=== PATIENT | female | born 1970 | race African-American/Black ===

== ENCOUNTER → 2017-04-14 | Outpatient (CLI) | payer OTHER ==
[~2017-04-14] MED LIST: ADRENACLIC0.15 MG/0. SUBQ; CARBAMAZEPINE200 M2 PO; ETODOLAC PO; FLEXERIL PO; INDERAL LA60 M1 PO; MAXALT MLT ODT 55 M1 PO; MOBIC15 MG PO; NORCO 5-325 TA1 EACH PO; NUVARING VAGIN1 EACH; NUVARING VAGIN1 EACH VG; NYQUIL D COLD295 ML PO; PHENTERMINE H37.5 MG PO; POTASSIUM GLUC500 MG PO; PREVACID 30MG C30 M1 PG; TERBINAFINE PO; VERAMYST10 GM; VITAMIN D 5050000 I1 PO; ZYRTEC10 M2 PO; [UNRECOGNIZED DRUG - OTHER] PO
== END ==
LOC: RAD 10:01
DX: Z12.31 Encounter for screening mammogram for malignant neoplasm of breast (principal)

== ENCOUNTER → 2018-04-16 | Outpatient (CLI) | payer OTHER | LOC: RAD 12:29 | DX: Z12.31 Encounter for screening mammogram for malignant neoplasm of breast (principal) ==

== ENCOUNTER → 2019-04-17 | Outpatient (CLI) | payer OTHER | LOC: RAD 03:02 | DX: Z12.31 Encounter for screening mammogram for malignant neoplasm of breast (principal) ==

== ENCOUNTER → 2020-04-20 | Outpatient (CLI) | payer BC, OTHER | LOC: RAD 15:17 | PROVIDERS: ATTEND Family Medicine | DX: Z12.31 Encounter for screening mammogram for malignant neoplasm of breast (principal) ==

== ENCOUNTER → 2021-04-21 | Outpatient (CLI) | payer BC, OTHER | LOC: RAD 14:43 | PROVIDERS: ATTEND Family Medicine | DX: Z12.31 Encounter for screening mammogram for malignant neoplasm of breast (principal); N63.10 Unspecified lump in the right breast, unspecified quadrant; N63.20 Unspecified lump in the left breast, unspecified quadrant; N64.89 Other specified disorders of breast ==

== ENCOUNTER → 2021-05-14 | Outpatient (CLI) | payer OTHER | LOC: ULTRA 09:45 | PROVIDERS: ATTEND Family Medicine | DX: N60.02 Solitary cyst of left breast (principal); N60.01 Solitary cyst of right breast; N63.20 Unspecified lump in the left breast, unspecified quadrant; N63.10 Unspecified lump in the right breast, unspecified quadrant ==